=== PATIENT | male | born 2000 | race Caucasian/White ===

== ENCOUNTER 2021-05-31 11:55 | Emergency (ER) | payer OTHER ==
[~2021-05-31] VITALS: Ht 193 cm; Wt 97.6 kg
[2021-05-31 15:35] VITALS: BP 132/64
== END 2021-05-31 15:35 | disposition home or self-care (01) ==
LOC: M ED 11:55
DX: R05.9 Cough, unspecified (principal); J02.9 Acute pharyngitis, unspecified; R52 Pain, unspecified; U07.1 COVID-19; F17.210 Nicotine dependence, cigarettes, uncomplicated

== ENCOUNTER 2021-12-15 13:40 | Day surgery (SDC) | payer OTHER ==
[~2021-12-15] VITALS: Ht 193 cm; Wt 105.1 kg
[~2021-12-15 13:40] MED LIST: ceFAZolin SOD 2 GM in IV 1 EA IV ONE
[2021-12-15] MEDS ORDERED: LR 1,000 ML IV SCH ×2 (14:20→23:20)
[2021-12-15] MEDS ORDERED: fentaNYL 100 MCG/2 ML INJECTION IV PRN ×2 (17:55→23:20)
[2021-12-15] MEDS ORDERED: dexameTHASONE 10MG/1ML VIAL PRES.FREE (J1100 PER 1MG) PN ONE (17:55)
[2021-12-15] MEDS ORDERED: ROPIvacaine 0.5% 30ML INJECTION (J2795 PER 1MG) PN ONE (17:55)
[2021-12-15] MEDS ORDERED: LIDOCAINE 1% SDV 5ML VIAL PN ONE (17:55)
[2021-12-15] MEDS ORDERED: propofoL 200 MG/20 ML VIAL As Ordered ONE ×2 (18:50→19:33)
[2021-12-15] MEDS ORDERED: LIDOCAINE 2% 100MG/5ML SDV (FOR ANES.) As Ordered ONE (18:50)
[2021-12-15] MEDS ORDERED: ROCURONIUM BROMIDE 50 MG/5 ML VIAL As Ordered ONE ×2 (18:50→19:54)
[2021-12-15] MEDS ORDERED: MIDAZOLAM INJ 2MG/2ML VIAL (J2250 PER 1MG) As Ordered ONE (18:50)
[2021-12-15] MEDS ORDERED: fentaNYL 100 MCG/2 ML INJECTION As Ordered ONE ×2 (18:51→19:50)
[2021-12-15] MEDS ORDERED: ceFAZolin 1GM VIAL (J0690 PER 500MG) As Ordered ONE (19:06)
[2021-12-15] MEDS ORDERED: BUPIVACAINE/EPIN 0.5% 30 ML VIAL As Ordered ONE (19:06)
[2021-12-15] MEDS: MIDAZOLAM INJ 2MG/2ML VIAL (J2250 PER 1MG) IV PRN ×2 (19:15→19:16)
[2021-12-15] MEDS ORDERED: dexameTHASONE 4 MG/ML 1ML VIAL (J1100 PER 1MG) As Ordered ONE (19:53)
[2021-12-15] MEDS ORDERED: ePHEDrine SULFATE 25 MG/5 ML(5MG/ML) SYRINGE As Ordered ONE (19:56)
[2021-12-15] MEDS ORDERED: TRANEXAMIC ACID 100 MG/ML 10ML VIAL As Ordered ONE (20:10)
[2021-12-15] MEDS ORDERED: ACETAMINOPHEN 1000MG 100ML IV BTL (OFIRMEV) (J0131 PER 10MG) As Ordered ONE (20:17)
[2021-12-15] MEDS ORDERED: ONDANSETRON 4MG 2ML VIAL As Ordered ONE (20:20)
[2021-12-15] MEDS ORDERED: SUGAMMADEX SODIUM 500 MG/5 ML VIAL (BRIDION) As Ordered ONE (20:20)
[2021-12-15] MEDS ORDERED: VANCOMYCIN 1000MG/20ML VIAL As Ordered ONE (22:04)
[2021-12-15] MEDS ORDERED: ONDANSETRON 4MG 2ML VIAL IV PRN (23:20)
[2021-12-15] MEDS ORDERED: oxyCODONE 5MG TAB PO PRN (23:20)
[2021-12-15] MEDS ORDERED: HYDROMORPHONE HCL 0.5 MG/ 0.5 ML SYRINGE (J1170 PER 1) IV PRN (23:20)
[2021-12-16] VITALS (8 sets, daily range): BP systolic 109–136; BP diastolic 50–63
[2021-12-16] MEDS ORDERED: LR 1,000 ML IV SCH (03:30)
[2021-12-16] MEDS ORDERED: PERCOCET 5MG/325MG TAB PO PRN (05:00)
== END 2021-12-16 15:25 | disposition home or self-care (01) ==
LOC: M SDC 13:40 → M 4MAIN 12-16 00:39 → M SDC 12-16 15:25
PROVIDERS: ATTEND Orthopaedic Surgery
DX: S86.092A Other specified injury of left Achilles tendon, initial encounter (principal); Y92.138 Other place on military base as the place of occurrence of the external cause; Y92.84 Military training ground as the place of occurrence of the external cause; Y99.1 Military activity; F17.220 Nicotine dependence, chewing tobacco, uncomplicated; Y93.9 Activity, unspecified
CPT/HCPCS: 27650; 64445; C1713; J0131; J0690; J1100; J2250; J2405; J3010; J3370

== ENCOUNTER 2022-07-19 13:32 | Emergency (ER) | payer OTHER ==
[~2022-07-19] VITALS: Ht 193 cm; Wt 102.0 kg
[2022-07-19] MEDS ORDERED: ceFAZolin SOD 1 GM in D5W MINI-BAG PLUS 50 ML IV ONE ×2 (15:10→16:00)
[2022-07-19] MEDS ORDERED: CEPH500C PO (15:11)
[2022-07-19] MEDS ORDERED: LIDOCAINE 1% MDV 20ML VIAL INFIL ONE (15:15)
[2022-07-19] MEDS ORDERED: ceFAZolin SOD 2 GM in IV 1 EA IV ONE (15:25)
[2022-07-19] MEDS ORDERED: NEOSPORIN OINT 0.9 GM PKT TOP ONE (16:10)
[2022-07-19 16:32] VITALS: BP 134/64
[2022-07-19] MEDS ORDERED: IBUP80TA PO (16:40)
== END 2022-07-19 16:58 | disposition home or self-care (01) ==
LOC: M ED 13:32
DX: S62.642B Nondisplaced fracture of proximal phalanx of right middle finger, initial encounter for open fracture (principal); S60.031A Contusion of right middle finger without damage to nail, initial encounter; S60.021A Contusion of right index finger without damage to nail, initial encounter; S60.410A Abrasion of right index finger, initial encounter; X58.XXXA Exposure to other specified factors, initial encounter; Y99.1 Military activity; F17.200 Nicotine dependence, unspecified, uncomplicated
CPT/HCPCS: 12001; 73130; 96365; 99284; J0690

== ENCOUNTER → 2022-07-25 | Outpatient (CLI) | payer OTHER ==
[~2022-07-25] MED LIST changes: +CEPH500C PO; +IBUP80TA PO; -ceFAZolin SOD 2 GM in IV 1 EA IV ONE
== END ==
LOC: M SOG 15:51
PROVIDERS: ATTEND Physician Assistant
DX: M79.645 Pain in left finger(s) (principal)

== ENCOUNTER 2022-07-29 08:45 | Day surgery (SDC) | payer OTHER ==
[~2022-07-29] VITALS: Ht 193 cm; Wt 98.4 kg
[2022-07-29] MEDS ORDERED: BUPIVACAINE HCL 0.25% 30ML VIAL As Ordered ONE (09:19)
[2022-07-29] MEDS ORDERED: ceFAZolin SOD 2 GM in IV 1 EA IV ONE (09:20)
[2022-07-29] MEDS ORDERED: ACETAMINOPHEN 1000MG 100ML IV BAG As Ordered ONE (09:46)
[2022-07-29] MEDS ORDERED: MIDAZOLAM INJ 2MG/2ML VIAL As Ordered ONE (09:46)
[2022-07-29] MEDS ORDERED: GLYCOPYRROLATE INJ 0.2 MG/ML 2 ML VIAL As Ordered ONE (09:46)
[2022-07-29] MEDS ORDERED: propofoL 200 MG/20 ML VIAL As Ordered ONE (09:46)
[2022-07-29] MEDS ORDERED: KETOROLAC 60MG 2ML VIAL As Ordered ONE (09:46)
[2022-07-29] MEDS ORDERED: fentaNYL 250 MCG/5 ML INJECTION As Ordered ONE (09:46)
[2022-07-29] MEDS ORDERED: LIDOCAINE 2% 100MG/5ML SDV (FOR ANES.) As Ordered ONE (09:46)
[2022-07-29] MEDS ORDERED: ONDANSETRON 4MG 2ML VIAL As Ordered ONE (09:46)
[2022-07-29] MEDS ORDERED: LR 1,000 ML IV SCH (10:35)
[2022-07-29] MEDS ORDERED: oxyCODONE 5MG TAB PO PRN (10:35)
[2022-07-29] MEDS ORDERED: HYDROMORPHONE HCL 0.5 MG/ 0.5 ML SYRINGE IV PRN (10:35)
[2022-07-29] MEDS ORDERED: fentaNYL 100 MCG/2 ML INJECTION IV PRN (10:35)
[2022-07-29] MEDS ORDERED: ONDANSETRON 4MG 2ML VIAL IV PRN (10:35)
[2022-07-29] MEDS ORDERED: PERC5TAB12 PO (10:47)
[2022-07-29 11:50] VITALS: BP 119/63
== END 2022-07-29 12:11 | disposition home or self-care (01) ==
LOC: M SDC 08:45
PROVIDERS: ATTEND Orthopaedic Surgery Hand Surgery
DX: S62.622A Displaced fracture of middle phalanx of right middle finger, initial encounter for closed fracture (principal); W31.82XA Contact with other commercial machinery, initial encounter; Y92.139 Unspecified place military base as the place of occurrence of the external cause; Y99.1 Military activity; F17.220 Nicotine dependence, chewing tobacco, uncomplicated; Z79.2 Long term (current) use of antibiotics; Z79.899 Other long term (current) drug therapy
CPT/HCPCS: 26727; 76000; C1713; J0131; J0690; J1100; J1885; J2250; J2405; J3010; S0020

== ENCOUNTER → 2022-08-08 | Outpatient (CLI) | payer OTHER ==
[~2022-08-08] MED LIST changes: +PERC5TAB12 PO
== END ==
LOC: M SOG 15:56
PROVIDERS: ATTEND Orthopaedic Surgery Hand Surgery
DX: S62.622D Displaced fracture of middle phalanx of right middle finger, subsequent encounter for fracture with routine healing (principal); Y93.9 Activity, unspecified; Y92.9 Unspecified place or not applicable

== ENCOUNTER → 2022-08-22 | Outpatient (CLI) | payer OTHER | LOC: M SOG 11:08 | PROVIDERS: ATTEND Physician Assistant | DX: S62.622D Displaced fracture of middle phalanx of right middle finger, subsequent encounter for fracture with routine healing (principal); Y93.9 Activity, unspecified; Y92.9 Unspecified place or not applicable ==

== ENCOUNTER → 2022-09-05 | Outpatient (CLI) | payer OTHER | LOC: M SOG 13:56 | PROVIDERS: ATTEND Physician Assistant | DX: S62.622D Displaced fracture of middle phalanx of right middle finger, subsequent encounter for fracture with routine healing (principal); Z98.890 Other specified postprocedural states ==

== ENCOUNTER → 2022-09-13 | Outpatient (CLI) | payer OTHER | LOC: M SOG 13:43 | PROVIDERS: ATTEND Physician Assistant | DX: Z53.9 Procedure and treatment not carried out, unspecified reason (principal) ==

== ENCOUNTER → 2022-09-20 | Outpatient (CLI) | payer OTHER | LOC: M SOG 09:54 | PROVIDERS: ATTEND Physician Assistant | DX: S62.622D Displaced fracture of middle phalanx of right middle finger, subsequent encounter for fracture with routine healing (principal) ==